=== PATIENT | male | born 1940 | race American Indian/Alaskan Native ===

== ENCOUNTER 2016-12-01 15:09 | Outpatient (CLI) | payer MEDICARE ==
--- NOTE | 2016-12-02 10:24 | XRay Report ---
KUB: 12/01/16 15:17:00 CLINICAL: Abdominal pain. Prostate cancer. FINDINGS: Normal bowel gas pattern. No distended bowel and no air-fluid levels. Moderate stool in the colon. No mass or suspicious calcifications. Granulomatous calcifications in the spleen and numerous pelvic phleboliths. Severe bilateral osteoarthritis of the hips and degenerative change in the spine. No suspicious bone lesions. IMPRESSION: Negative abdomen. Arthritis.
== END 2016-12-01 15:10 | disposition home or self-care (01) ==
LOC: XRAY 15:09
PROVIDERS: ATTEND Urology
DX: R10.9 Unspecified abdominal pain (principal); C61 Malignant neoplasm of prostate
CPT/HCPCS: 74000

== ENCOUNTER 2017-11-21 12:40 | Emergency (ER) | payer MEDICARE ==
--- NOTE | 2017-11-21 13:46 | Emergency Department Report ---
HPI - General Chief Complaint: Medical Clearance Time Seen by Provider: 11/21/17 13:29 - HPI HPI: Room 2 The patient is a 77-year-old male presenting with chief complaint of bleeding fistula. The patient states he went to dialysis today and completed dialysis however afterwards is left upper extremity fistula would not stop bleeding. A dressing with Christian wrap was applied by the dialysis staff at approximately 11:30 per patient and the patient was sent to the ED. Patient denies any other complaints Location: Left upper extremity Duration: [See above] Quality: Bleeding Severity: Moderate Modifying factors: [see above] Context: [see above] Mode of transportation: [not driving] ED Past Medical Hx - Past Medical History Hx Hypertension: Yes Hx CVA: Yes Hx Diabetes: Yes - Surgical History Past Surgical History?: No Additional Surgical History: Left upper extremity fistula - Family History Family history: no significant - Social History Smoking Status: Former Smoker (none 5 years) ED Review of Systems ROS: Stated complaint: BLEEDING Other details as noted in HPI Constitutional: no symptoms reported Hematological/Lymphatic: other (bleeding from left upper extremity fistula) Physical Exam - Physical Exam Physical Exam: GENERAL: The patient is well-developed well-nourished male lying on stretcher not appearing to be in acute distress. [] HEENT: Normocephalic. Atraumatic. Extraocular motions are intact. Patient has moist mucous membranes. NECK: Supple. Trachea midline CHEST/LUNGS: Clear to auscultation. There is no respiratory distress noted. HEART/CARDIOVASCULAR: Regular. There is no tachycardia. There is no gallop rub or murmur. ABDOMEN: Abdomen is soft, nontender. Patient has normal bowel sounds. There is no abdominal distention. SKIN: There is no rash. There is no diaphoresis. NEURO: The patient is awake, alert, and oriented. The patient is cooperative. The patient has normal speech and gait. MUSCULOSKELETAL: There is no evidence of acute injury. ED Course - Reevaluation(s) Reevaluation #1: 11/21/17 The patient's Christian wrap was unraveled and loosened significantly for patient comfort during my interview. Reevaluation #2: 11/21/17 15:14 Christian bandage removed. Patient hemostatic. Light gauze dressing placed ED Medical Decision Making - Lab Data Result diagrams: 11/21/17 13:41 11/21/17 13:41 Laboratory Tests 11/21/17 11/21/17 11/21/17 13:41 13:41 13:41 WBC 5.5 RBC 5.41 H Hgb 13.5 Hct 45.2 MCV 84 MCH 25 L MCHC 30 L RDW 19.7 H Plt Count 187 Lymph % (Auto) 28.4 [place] % (Auto) 11.6 H Eos % (Auto) 3.5 Baso % (Auto) 0.4 Lymph # 1.5 [place] # 0.6 Eos # 0.2 Baso # 0.0 Seg Neutrophils % 56.1 Seg Neutrophils # 3.1 PT 12.5 INR 0.89 APTT 34.6 Sodium 137 Potassium 4.3 Chloride 96.6 L Carbon Dioxide 25 Anion Gap 20 BUN 20 Creatinine 7.8 H Estimated GFR 8 BUN/Creatinine Ratio 3 Glucose 84 Calcium 9.1 - Differential Diagnosis coagulopathy, platelet dysfunction Critical care attestation.: If time is entered above; I have spent that time in minutes in the direct care of this critically ill patient, excluding procedure time. ED Disposition Clinical Impression: Hemorrhage of arteriovenous fistula Disposition: -01 TO HOME OR SELFCARE Is pt being admited?: No Does the pt Need Aspirin: No Condition: Stable Additional Instructions: Return to the emergency department immediately should you develop worsening symptoms, fever, inability to tolerate food or liquid or any other concerns. Referrals: PRIMARY CAREMD [Primary Care Provider] - 3-5 Days Time of Disposition: 15:15
[2017-11-21] MEDS ORDERED: DDAVP 25 MCG in NACL 0.9% 50 ML IV ONE (14:00)
[2017-11-21 14:13] LABS: Calcium 9.1 mg/dL (8.4-10.2)
[2017-11-21 14:23] LABS: INR 0.89 (0.87-1.13)
[2017-11-21 14:24] LABS: Partial Thromboplastin Time 34.6 Sec. (24.2-36.6)
[2017-11-21 14:39] LABS: Basophils % (Auto) 0.4 % (0.0-1.8); Eosinophils # (Auto) 0.2 K/mm3 (0.0-0.4); Eosinophils % (Auto) 3.5 % (0.0-4.3); Lymphocytes # (Auto) 1.5 K/mm3 (1.2-5.4); Lymphocytes % (Auto) 28.4 % (13.4-35.0); Mean Corpuscular HGB Conc 30 % (32-34); Mean Corpuscular Volume 84 fl (84-94); Monocytes # (Auto) 0.6 K/mm3 (0.0-0.8); Monocytes % (Auto) 11.6 % (0.0-7.3); Platelet Count 187 K/mm3 (140-440); Red Blood Count 5.41 M/mm3 (3.65-5.03); Red Cell Distribution Width 19.7 % (13.2-15.2)
[2017-11-21 14:40] LABS: Hematocrit 45.2 % (35.5-45.6); Hemoglobin 13.5 gm/dl (11.8-15.2); Mean Corpuscular Hemoglobin 25 pg (28-32)
[2017-11-21 15:49] VITALS: BP 138/73
== END 2017-11-21 15:47 | disposition home or self-care (01) ==
LOC: ED 12:40
DX: T82.838A Hemorrhage due to vascular prosthetic devices, implants and grafts, initial encounter (principal); I10 Essential (primary) hypertension; E11.9 Type 2 diabetes mellitus without complications; Z86.73 Personal history of transient ischemic attack (TIA), and cerebral infarction without residual deficits; Z87.891 Personal history of nicotine dependence; Z99.2 Dependence on renal dialysis
CPT/HCPCS: 36415; 80048; 85025; 85610; 85730; 96365; 99284; J2597

== ENCOUNTER 2018-09-02 09:50 | Inpatient (IN) | payer MEDICARE ==
--- NOTE | 2018-09-02 10:13 | Emergency Department Report ---
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 Patient brought to the emergency room via EMS from dialysis center after patient became unresponsive for a few minutes in the beginning of his dialysis session. Patient now is alert, oriented to place but not time. Patient stated that he was weak even before this started of the dialysis. Describes his weakness as generalized weakness. Emesis stated that on arrival patient blood pressure was 96/32 but in route patient blood pressure increased to 172/54. Patient denied any chest pain, shortness of breath, nausea or vomiting. Patient also denied any headache, focal weakness, numbness or tingling sensation. MD Complaint: altered mental status, confusion, decreased responsiveness -: Sudden, hour(s) Severity: moderate Consistency of Symptoms: unknown Associated Symptoms: denies other symptoms - Related Data Allergies Allergy/AdvReac Type Severity Reaction Status Date / Time No Known Allergies Allergy Unverified 12/01/16 15:09 ED Review of Systems ROS: Stated complaint: SYNCOPE Other details as noted in HPI Comment: All other systems reviewed and negative Constitutional: denies: chills, fever Respiratory: denies: cough, orthopnea, shortness of breath, SOB with exertion, SOB at rest Cardiovascular: denies: chest pain, palpitations Gastrointestinal: denies: abdominal pain, nausea, vomiting, diarrhea, constipation, hematemesis, melena, hematochezia Musculoskeletal: denies: back pain Neurological: weakness (generalized), confusion. denies: headache ED Past Medical Hx - Past Medical History Hx Hypertension: Yes Hx CVA: Yes Hx Diabetes: Yes - Surgical History Additional Surgical History: Left upper extremity fistula - Social History Smoking Status: Never Smoker ED Physical Exam - General Limitations: Physical Limitation General appearance: alert, in no apparent distress - Head Head exam: Present: atraumatic, normocephalic, normal inspection - Eye Eye exam: Present: normal appearance, PERRL - ENT ENT exam: Present: normal exam, normal orophraynx, mucous membranes moist - Neck Neck exam: Present: normal inspection, full ROM. Absent: tenderness, meningismus, lymphadenopathy, thyromegaly - Respiratory Respiratory exam: Present: normal lung sounds bilaterally - Cardiovascular Cardiovascular Exam: Present: regular rate, normal rhythm, normal heart sounds - GI/Abdominal GI/Abdominal exam: Present: soft, normal bowel sounds. Absent: distended, tenderness, guarding, rebound, rigid, mass, bruit, pulsatile mass, hernia - Extremities Exam Extremities exam: Present: normal inspection - Back Exam Back exam: Present: normal inspection, full ROM. Absent: tenderness, CVA tenderness (R), CVA tenderness (L), muscle spasm, paraspinal tenderness, vertebral tenderness - Neurological Exam Neurological exam: Present: alert, altered, other (chronic right upper and lower extremity weakness.) - Skin Skin exam: Present: warm, intact, normal color - Assessment Assessment Interval: Baseline - Level of Consciousness 1a. Level of Consciousness: alert/keenly responsive - LOC Questions 1b. LOC Questions: answers 1 question correctly - LOC Command 1c. LOC Commands: performs 1 task correctly - Best Gaze 2. Best Gaze: normal - Visual 3. Visual: no visual loss - Facial Palsy 4. Facial Palsy: normal symmetrical movement - Motor Arm 5a. Motor Arm Left: no drift 5b. Motor Arm Right: some gravity effort - Motor Leg 6a. Motor Leg Left: no drift 6b. Motor Leg Right: some gravity effort - Limb Ataxia 7. Limb Ataxia: absent - Sensory 8. Sensory: normal - Best Language 9. Best Language: no aphasia - Dysarthria 10. Dysarthria: normal - Extinction and Inattention 11. Extinction/Inattention: no abnormality - Scoring Total Score: 6 Stroke Severity: Moderate Stroke ED Course Vital Signs 09/02/18 09/02/18 09/02/18 10:03 10:17 10:31 Temperature 97.9 F Pulse Rate 65 64 60 Respiratory 21 18 18 Rate Blood Pressure 131/71 Blood Pressure 123/70 [Right] O2 Sat by Pulse 97 97 97 Oximetry 09/02/18 09/02/18 09/02/18 10:38 11:02 11:15 Temperature Pulse Rate 60 58 L Respiratory 21 18 15 Rate Blood Pressure Blood Pressure [Right] O2 Sat by Pulse 97 98 98 Oximetry 09/02/18 09/02/18 11:31 11:50 Temperature Pulse Rate 58 L 56 L Respiratory 18 16 Rate Blood Pressure Blood Pressure 146/78 [Right] O2 Sat by Pulse 99 99 Oximetry - Lab Data Result diagrams: 09/02/18 11:08 09/02/18 11:08 Lab Results 09/02/18 09/02/18 09/02/18 Range/Units 11:08 11:08 11:08 WBC 4.9 (4.5-11.0) K/mm3 RBC 3.93 (3.65-5.03) M/mm3 Hgb 10.5 L (11.8-15.2) gm/dl Hct 32.4 L (35.5-45.6) % MCV 82 L (84-94) fl MCH 27 L (28-32) pg MCHC 32 (32-34) % RDW 16.8 H (13.2-15.2) % Plt Count 202 (140-440) K/mm3 Lymph % (Auto) 11.2 L (13.4-35.0) % [place] % (Auto) 5.9 (0.0-7.3) % Eos % (Auto) 1.5 (0.0-4.3) % Baso % (Auto) 0.3 (0.0-1.8) % Lymph # 0.5 L (1.2-5.4) K/mm3 [place] # 0.3 (0.0-0.8) K/mm3 Eos # 0.1 (0.0-0.4) K/mm3 Baso # 0.0 (0.0-0.1) K/mm3 Seg Neutrophils % 81.1 H (40.0-70.0) % Seg Neutrophils # 4.0 (1.8-7.7) K/mm3 PT 13.8 (12.2-14.9) Sec. INR 1.00 (0.87-1.13) APTT 30.3 (24.2-36.6) Sec. Sodium (137-145) mmol/L Potassium (3.6-5.0) mmol/L Chloride (98-107) mmol/L Carbon Dioxide (22-30) mmol/L Anion Gap mmol/L BUN (9-20) mg/dL Creatinine (0.8-1.5) mg/dL Estimated GFR ml/min BUN/Creatinine Ratio % Glucose (75-100) mg/dL Lactic Acid (0.7-2.0) mmol/L Calcium (8.4-10.2) mg/dL Total Bilirubin (0.1-1.2) mg/dL Direct Bilirubin (0-0.2) mg/dL AST (5-40) units/L ALT (7-56) units/L Alkaline Phosphatase (35-129) units/L Ammonia (25-60) umol/L Troponin T 0.094 H (0.00-0.029) ng/mL Total Protein (6.3-8.2) g/dL Albumin (3.9-5) g/dL Albumin/Globulin Ratio % 09/02/18 09/02/18 09/02/18 Range/Units 11:08 11:08 11:08 WBC (4.5-11.0) K/mm3 RBC (3.65-5.03) M/mm3 Hgb (11.8-15.2) gm/dl Hct (35.5-45.6) % MCV (84-94) fl MCH (28-32) pg MCHC (32-34) % RDW (13.2-15.2) % Plt Count (140-440) K/mm3 Lymph % (Auto) (13.4-35.0) % [place] % (Auto) (0.0-7.3) % Eos % (Auto) (0.0-4.3) % Baso % (Auto) (0.0-1.8) % Lymph # (1.2-5.4) K/mm3 [place] # (0.0-0.8) K/mm3 Eos # (0.0-0.4) K/mm3 Baso # (0.0-0.1) K/mm3 Seg Neutrophils % (40.0-70.0) % Seg Neutrophils # (1.8-7.7) K/mm3 PT (12.2-14.9) Sec. INR (0.87-1.13) APTT (24.2-36.6) Sec. Sodium 140 (137-145) mmol/L Potassium 4.0 (3.6-5.0) mmol/L Chloride 97.6 L (98-107) mmol/L Carbon Dioxide 22 (22-30) mmol/L Anion Gap 24 mmol/L BUN 55 H (9-20) mg/dL Creatinine 15.4 H (0.8-1.5) mg/dL Estimated GFR 4 ml/min BUN/Creatinine Ratio 4 % Glucose 95 (75-100) mg/dL Lactic Acid 1.60 (0.7-2.0) mmol/L Calcium 8.3 L (8.4-10.2) mg/dL Total Bilirubin 0.60 (0.1-1.2) mg/dL Direct Bilirubin < 0.2 (0-0.2) mg/dL AST 21 (5-40) units/L ALT 13 (7-56) units/L Alkaline Phosphatase 81 (35-129) units/L Ammonia 26.0 (25-60) umol/L Troponin T 0.098 H (0.00-0.029) ng/mL Total Protein 6.8 (6.3-8.2) g/dL Albumin 3.3 L (3.9-5) g/dL Albumin/Globulin Ratio 0.9 % - EKG Data -: EKG Interpreted by Pa EKG shows normal: sinus rhythm Rate: normal Interpretation: no acute changes - Radiology Data Radiology results: report reviewed Referring Physician: NYASIA WINSLOW Patient Name: FATUMA MCFADDEN JR Date of : 1940 Sex: Male Report Date: 2018-09-02 Report Status: [place] [address] Cat Scan Report Signed Patient: FATUMA MCFADDEN JR MR#: [id number] : 1940 Acct:[id number] Age/Sex: 78 / M ADM Date: 09/02/18 Loc: ED Attending Dr: Ordering Physician: NYASIA WINSLOW Date of Service: 09/02/18 Procedure(s): CT head/brain wo con Accession Number(s): [id number] cc: NYASIA WINSLOW CT HEAD WITHOUT CONTRAST: HISTORY: Altered mental status. TECHNIQUE: Sequential CT images without contrast. FINDINGS: Images obtained show bilateral prominence of the sulci and ventricles. There are no abnormal intra- or extra-axial blood or fluid collections. There are no focal masses or evidence of mass effect. The lane white matter differentiation appears within normal limits. Regions of periventricular decreased attenuation are consistent with microangiopathic ischemic disease. The posterior fossa structures including the fourth ventricle, cerebellum, and brainstem appear normal. There is a large fluid level in the left maxillary is. The remaining sinuses are well-aerated. IMPRESSION: Evidence of atrophy and microangiopathic ischemic disease. No acute intracranial process noted. Fluid level in the left maxillary sinus. Correlate for acute sinusitis. 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 Patient brought to the emergency room via EMS from dialysis center after patient became unresponsive for a few minutes in the beginning of his dialysis session. Patient now is alert, oriented to place but not time. Patient stated that he was weak even before this started of the dialysis. Describes his weakness as generalized weakness. Emesis stated that on arrival patient blood pressure was 96/32 but in route patient blood pressure increased to 172/54. Patient denied any chest pain, shortness of breath, nausea or vomiting. Patient also denied any headache, focal weakness, numbness or tingling sensation. Patient remained stable in the ER. Patient is back to his baseline. CT brain is negative for acute finding. Labs reviewed and is unremarkable. I discussed the patient with Dr. Melendez, he agreed to admit the patient to medical service. Critical Care Time: Yes Critical care time in (mins) excluding proc time.: 30 Critical care attestation.: If time is entered above; I have spent that time in minutes in the direct care of this critically ill patient, excluding procedure time. ED Disposition Clinical Impression: Altered mental status Disposition: DC-09 OP ADMIT IP TO THIS HOSP Is pt being admited?: Yes Condition: Stable Referrals: CATHLEEN ROJAS MD [Primary Care Provider] - 3-5 Days
--- NOTE | 2018-09-02 10:59 | XRay Report ---
AP CHEST: HISTORY: Altered mental status There is poor inspiration. The lungs are grossly clear. Heart and mediastinal structures are unremarkable. The bony thorax is grossly intact. IMPRESSION: Negative expiratory AP chest.
[2018-09-02 11:42] LABS: Basophils % (Auto) 0.3 % (0.0-1.8); Eosinophils # (Auto) 0.1 K/mm3 (0.0-0.4); Eosinophils % (Auto) 1.5 % (0.0-4.3); Hematocrit 32.4 % (35.5-45.6); Hemoglobin 10.5 gm/dl (11.8-15.2); Lymphocytes # (Auto) 0.5 K/mm3 (1.2-5.4); Lymphocytes % (Auto) 11.2 % (13.4-35.0); Mean Corpuscular HGB Conc 32 % (32-34); Mean Corpuscular Volume 82 fl (84-94); Monocytes # (Auto) 0.3 K/mm3 (0.0-0.8); Monocytes % (Auto) 5.9 % (0.0-7.3); Platelet Count 202 K/mm3 (140-440); Red Blood Count 3.93 M/mm3 (3.65-5.03); Red Cell Distribution Width 16.8 % (13.2-15.2)
--- NOTE | 2018-09-02 11:49 | Cat Scan Report ---
CT HEAD WITHOUT CONTRAST: HISTORY: Altered mental status. TECHNIQUE: Sequential CT images without contrast. FINDINGS: Images obtained show bilateral prominence of the sulci and ventricles. There are no abnormal intra- or extra-axial blood or fluid collections. There are no focal masses or evidence of mass effect. The lane white matter differentiation appears within normal limits. Regions of periventricular decreased attenuation are consistent with microangiopathic ischemic disease. The posterior fossa structures including the fourth ventricle, cerebellum, and brainstem appear normal. There is a large fluid level in the left maxillary is. The remaining sinuses are well-aerated. IMPRESSION: Evidence of atrophy and microangiopathic ischemic disease. No acute intracranial process noted. Fluid level in the left maxillary sinus. Correlate for acute sinusitis.
[2018-09-02 11:53] LABS: Partial Thromboplastin Time 30.3 Sec. (24.2-36.6)
[2018-09-02 12:00] LABS: Alanine Aminotransferase 13 units/L (7-56); Albumin 3.3 g/dL (3.9-5); BUN/Creatinine Ratio 4; Blood Urea Nitrogen 55 mg/dL (9-20); Calcium 8.3 mg/dL (8.4-10.2); Hemolysis Index 20
[2018-09-02 12:03] LABS: Bilirubin,Direct < 0.2 mg/dL (0-0.2)
--- NOTE | 2018-09-02 13:57 | Consultation ---
History of Present Illness - Reason for Consult Consult date: 09/02/18 end stage renal disease - History of Present Illness The patient is 78 YO male who is well known to our service with medical history significant for ESRD on hemodialysis (MWF), Hypertension, DM type 2, multiple CVA with right sided residual weakness and cognitive dceline who was brought to the emergency room via EMS from hemodialysis center after patient became unresponsive for a few minutes in the beginning of his dialysis session. Patient is a poor historian. He c/o generalized weakness, cough productive of greenish phlegm. His initial blood pressure was 96/32 but en route patient blood pressure increased to 172/54. Patient denies any chest pain, shortness of breath, nausea, vomiting, abd pain, dizziness, fever or chills. Patient admitted for decreased responsiveness. He received about 2 hrs of hemodialysis today. Nephrology was consulted for further evaluation. Past History Past Medical History: anemia, diabetes, dialysis, ESRD, hyperlipidemia, stroke Medications and Allergies Allergies Allergy/AdvReac Type Severity Reaction Status Date / Time No Known Allergies Allergy Unverified 12/01/16 15:09 Review of Systems ROS unobtainable: due to mental status (please see HPI.) Exam - Vital Signs Vital signs: Vital Signs Temp Pulse Resp BP Pulse Ox 97.9 F 65 21 123/70 97 09/02/18 10:03 09/02/18 10:03 09/02/18 10:03 09/02/18 10:03 09/02/18 10:03 - General Appearance General appearance: well-developed, well-nourished, appears stated age, other (not in distress) EENT: ATNC, PERRL, hearing intact, vision intact Neck: Present: neck supple, trachea midline Respiratory: Clear to Ascultation Heart: regular, S1S2, no murmurs Gastrointestinal: Present: normoactive bowel sounds. Absent: tenderness, distended Integumentary: no rash, warm and dry Neurologic: confused, hemiplegic (right side) Musculoskeletal: Present: other (no edema, left arm AVF) Psychiatric: cooperative Results - Lab Results 09/02/18 11:08 09/02/18 11:08 Most recent lab results Calcium 8.3 mg/dL (8.4-10.2) L 09/02/18 11:08 Assessment and Plan 1. ESRD: Patient is on maintenance hemodialysis three times a week, MWF schedule. Received about 2 hrs of hemodialysis today. Plan to do HD in 2 days. 2. HTN: Monitor BP. Resume home BP meds. 3. AMS: Monitor. 4. Anemia: Epogen with HD. 5. CVA with residual R hemiplegia. 6. DM type 2.
[2018-09-02] MEDS ORDERED: ZOFRAN IV PRN (21:55)
[2018-09-02] MEDS ORDERED: TYLENOL PO PRN (21:55)
[2018-09-02] MEDS ORDERED: PERCOCET 5/325 PO PRN (21:55)
[2018-09-02] MEDS ORDERED: SODIUM CHLORIDE FLUSH SYRINGE 10 ML IV PRN (21:55)
[2018-09-02] MEDS ORDERED: DILAUDID IV PRN (21:55)
[2018-09-02] MEDS ORDERED: REGLAN IV PRN ×2 (21:55→22:12)
--- NOTE | 2018-09-02 22:01 | Event Note ---
Date: 09/02/18 See dictated history and physical in the reports Syncope ESRD
[2018-09-02] MEDS: PEPCID PO SCH (22:23)
[2018-09-02] MEDS: SODIUM CHLORIDE FLUSH SYRINGE 10 ML IV SCH (22:24)
[2018-09-03] MEDS ORDERED: HEPARIN 10,000 UNITS/10 ML IV ONE ×2 (01:31→01:35)
[2018-09-03 01:46] LABS: Chol/HDL Ratio 3.25 %
[2018-09-03 02:06] LABS: Hematocrit 31.4 % (35.5-45.6); Hemoglobin 10.1 gm/dl (11.8-15.2)
[2018-09-03 02:24] LABS: INR 1.09 (0.87-1.13)
[2018-09-03 02:25] LABS: Partial Thromboplastin Time 29.7 Sec. (24.2-36.6)
[2018-09-03] MEDS: HEPARIN/ 0.45% NACL-25,000 UNIT/500 ML 25,000 UNIT/500 ML BAG IV SCH (02:33)
[2018-09-03 06:27] LABS: Basophils % (Auto) 0.3 % (0.0-1.8); Eosinophils # (Auto) 0.1 K/mm3 (0.0-0.4); Eosinophils % (Auto) 2.3 % (0.0-4.3); Hemoglobin 9.8 gm/dl (11.8-15.2); Lymphocytes # (Auto) 1.1 K/mm3 (1.2-5.4); Lymphocytes % (Auto) 23.5 % (13.4-35.0); Mean Corpuscular HGB Conc 32 % (32-34); Mean Corpuscular Volume 84 fl (84-94); Monocytes # (Auto) 0.5 K/mm3 (0.0-0.8); Monocytes % (Auto) 10.7 % (0.0-7.3); Platelet Count 221 K/mm3 (140-440); Red Blood Count 3.71 M/mm3 (3.65-5.03); Red Cell Distribution Width 16.8 % (13.2-15.2)
[2018-09-03 06:53] LABS: Albumin 3.2 g/dL (3.9-5); Calcium 8.2 mg/dL (8.4-10.2)
--- NOTE | 2018-09-03 08:32 | History and Physical Report ---
CHIEF COMPLAINT: Passed out during dialysis for a few minutes. HISTORY OF PRESENT ILLNESS: A 78-year-old male with history of end-stage renal disease, on hemodialysis, hypertension, diabetes and multiple CVAs with right-sided weakness which is residual, brought in by EMS for apparently passing out during dialysis. Ten minutes into dialysis, the patient passed out for a few seconds. No chest pain. The patient felt he was very weak before dialysis was started. Also, complains of generalized weakness. On arrival, the patient's blood pressure was 96/32. Later on increased blood pressure to 172/54. The patient denies any chest pain, no shortness of breath. No nausea, vomiting. No headache. No recent travel. PAST MEDICAL HISTORY: Significant for hypertension, diabetes, cerebrovascular accident. PAST SURGICAL HISTORY: Left upper extremity fistula. SOCIAL HISTORY: Does not smoke. FAMILY HISTORY: Hypertension. REVIEW OF SYSTEMS: Significant for syncope for a minute and generalized weakness. Otherwise, review of systems negative. PHYSICAL EXAMINATION: GENERAL: Elderly male, cooperative during examination. VITAL SIGNS: Blood pressure is 147/66, temperature is 98.4, pulse is 84, respirations are 18, sats are 95%. HEENT: Unremarkable. Pupils equal and reactive. NECK: Supple, no lymphadenopathy, no thyromegaly. LUNGS: Clear to auscultation and percussion. Good air entry. CARDIOVASCULAR SYSTEM: S1, S2 heard. No gallop, no murmur, no rub. Apical impulse in left fifth intercostal space in midclavicular line. ABDOMEN: Soft and benign. No hepatosplenomegaly. No guarding, no rigidity. Hernial orifices are normal. EXTREMITIES: Good pedal pulses. No pedal edema. CENTRAL NERVOUS SYSTEM: Alert and oriented x 4, nonfocal exam. SKIN: Normal. LABORATORY DATA: White count is 4800, H and H is 10.5 and 32.4, platelet count is 202,000. Electrolytes are normal except for BUN and creatinine of 55 and 15.4. Troponin is 0.098 and 0.104 and 0.103. EKG shows sinus rhythm, heart rate of 60 per minute. DIAGNOSTIC DATA: CT of the head; evidence of atrophy and microangiopathic ischemic disease, no acute intracranial process noted. Fluid level in the left maxillary sinus, correlate for acute sinusitis. Chest x-ray negative. No acute findings. ASSESSMENT AND PLAN: 1. Syncope. Syncope workup. The patient had elevated troponins. Will get Lexiscan. Also, Cardiology consult requested. Also, carotid duplex scan. MRI/MRA if necessary. 2. Hypertension. Continue antihypertensives. 3. Cerebrovascular accident with right side residual weakness. Supportive care. 4. Diabetes, coverage for now. 5. Deep venous thrombosis prophylaxis, heparin 5000 q. 12. JOB# [id number] VSM/NTS
--- NOTE | 2018-09-03 08:43 | Progress Note ---
Assessment and Plan 1. ESRD: Patient is on maintenance hemodialysis three times a week, MWF schedule. Plan to do HD tomorrow. 2. HTN: On Losartan. Monitor BP. 3. Elevated Troponin: Followed by Cards. 4. Decreased responsiveness: Improved. 5. Anemia: Epogen with HD. 6. CVA with residual R hemiplegia. 7. DM type 2. Subjective Date of service: 09/03/18 Interval history: Patient was seen and examined at the bedside. Objective - Vital Signs Vital signs: Vital Signs - 12hr 09/02/18 09/03/18 23:09 08:17 Temperature 98.4 F Pulse Rate 65 Respiratory 16 20 Rate Blood Pressure 159/80 O2 Sat by Pulse 97 Oximetry - General Appearance General appearance: well-developed, well-nourished, appears stated age, other (not in distress) EENT: ATNC, PERRL, hearing intact, vision intact Neck: supple Respiratory: Present: Clear to Ascultation Cardiology: regular, S1S2, no murmurs Gastrointestinal: normoactive bowel sounds, no tenderness, no distended Integumentary: no rash, warm and dry Neurologic: no asterixis, confused, hemiplegic (right side) Musculoskeletal: other (no edema, right foot deformity, left arm AVF) - Lab 09/03/18 06:07 09/03/18 06:07 Most recent lab results Calcium 8.2 mg/dL (8.4-10.2) L 09/03/18 06:07 Medications & Allergies - Medications Allergies/Adverse Reactions: Allergies No Known Allergies Allergy (Unverified 12/01/16 15:09) Home Medications: Home Medications Medication Instructions Recorded Confirmed Last Taken Type Unobtainable 09/02/18 09/02/18 Unknown History Active Medications: Generic Name Dose Route Start Last Admin Trade Name Freq PRN Reason Stop Dose Admin Acetaminophen 650 mg 09/02/18 21:55 Tylenol PO Q4H PRN Pain MILD(1-3)/Fever >100.5/QUINTERO Atorvastatin Calcium 20 mg 09/03/18 22:00 Lipitor PO QHS BRIAN Famotidine 10 mg 09/02/18 22:00 09/02/18 22:23 Pepcid PO 10 mg BID BRIAN Administration Hydromorphone HCl 0.25 mg 09/02/18 21:55 Dilaudid IV Q3H PRN Pain, Moderate (4-6) Heparin Sodium/Sodium Chloride 25,000 unit in 500 mls @ 20 mls/hr 09/03/18 02:00 09/03/18 02:33 Heparin/ 0.45% Nacl-25,000 Unit/500 Ml IV 1,000 units/hr TITRATE BRIAN 20 mls/hr Administration Protocol 1,000 UNITS/HR Losartan Potassium 50 mg 09/03/18 10:00 Cozaar PO QDAY BRIAN Metoclopramide HCl 2.5 mg 09/02/18 22:12 Reglan IV Q6H PRN Nausea And Vomiting Ondansetron HCl 4 mg 09/02/18 21:55 Zofran IV Q8H PRN Nausea And Vomiting Oxycodone/Acetaminophen 1 tab 09/02/18 21:55 Percocet 5/325 PO Q6H PRN Pain, Moderate (4-6) Sodium Chloride 10 ml 09/02/18 22:00 09/02/18 22:24 Sodium Chloride Flush Syringe 10 Ml IV 10 ml BID BRIAN Administration Sodium Chloride 10 ml 09/02/18 21:55 Sodium Chloride Flush Syringe 10 Ml IV PRN PRN LINE FLUSH
[2018-09-03] MEDS ORDERED: COZAAR PO SCH (10:00)
--- NOTE | 2018-09-03 10:32 | Consultation ---
History of Present Illness Consult date: 09/03/18 Consult reason: elevated troponin History of present illness: Patient is a 78 year old man with end stage renal disease and is on hemodialysis. He has Hypertension, DM type 2, prior CVA with right sided residual. Patient was brought to the emergency room from hemodialysis center after patient became unresponsive during his dialysis session. There were no reports of chest pain, unusual shortness of breath or palpitations. No acute intracranial process by head CT scan. Chest x-ray is negative. An EKG shows sinus rhythm with prolonged QTc. Past History Past Medical History: anemia, diabetes, dialysis, ESRD, hypertension, hyperlipidemia, stroke Medications and Allergies Allergies Allergy/AdvReac Type Severity Reaction Status Date / Time No Known Allergies Allergy Unverified 12/01/16 15:09 Home Medications Medication Instructions Recorded Confirmed Last Taken Type Unobtainable 09/02/18 09/02/18 Unknown History Active Meds: Active Medications Acetaminophen (Tylenol) 650 mg PO Q4H PRN PRN Reason: Pain MILD(1-3)/Fever >100.5/QUINTERO Atorvastatin Calcium (Lipitor) 20 mg PO QHS [facility] Famotidine (Pepcid) 10 mg PO BID [facility] Last Admin: 09/02/18 22:23 Dose: 10 mg Documented by: Hydromorphone HCl (Dilaudid) 0.25 mg IV Q3H PRN PRN Reason: Pain, Moderate (4-6) Heparin Sodium/Sodium Chloride (Heparin/ 0.45% Nacl-25,000 Unit/500 Ml) 25,000 unit in 500 mls @ 20 mls/hr IV TITRATE [facility]; Protocol Last Admin: 09/03/18 02:33 Dose: 1,000 units/hr, 20 mls/hr Documented by: Losartan Potassium (Cozaar) 100 mg PO QDAY [facility] Metoclopramide HCl (Reglan) 2.5 mg IV Q6H PRN PRN Reason: Nausea And Vomiting Ondansetron HCl (Zofran) 4 mg IV Q8H PRN PRN Reason: Nausea And Vomiting Oxycodone/Acetaminophen (Percocet 5/325) 1 tab PO Q6H PRN PRN Reason: Pain, Moderate (4-6) Sodium Chloride (Sodium Chloride Flush Syringe 10 Ml) 10 ml IV BID [facility] Last Admin: 09/02/18 22:24 Dose: 10 ml Documented by: Sodium Chloride (Sodium Chloride Flush Syringe 10 Ml) 10 ml IV PRN PRN PRN Reason: LINE FLUSH Physical Examination Vital Signs Temp Pulse Resp BP Pulse Ox 97.9 F 65 21 123/70 97 09/02/18 10:03 09/02/18 10:03 09/02/18 10:03 09/02/18 10:03 09/02/18 10:03 General appearance: no acute distress HEENT: Positive: PERRL Neck: Positive: trachea midline Cardiac: Positive: Reg Rate and Rhythm Lungs: Positive: Decreased Breath Sounds Neuro: Positive: Other (right sided residual) Results 09/03/18 06:07 09/03/18 06:07 Cardiac Enzymes 09/02/18 09/03/18 Range/Units 11:08 06:07 AST 21 18 (5-40) units/L Coagulation 09/02/18 09/03/18 Range/Units 11:08 01:54 PT 13.8 14.8 (12.2-14.9) Sec. INR 1.00 1.09 (0.87-1.13) APTT 30.3 29.7 (24.2-36.6) Sec. Lipids 09/02/18 Range/Units 20:45 Triglycerides 114 (2-149) mg/dL Cholesterol 104 (50-199) mg/dL HDL Cholesterol 32 L (40-59) mg/dL Cholesterol/HDL Ratio 3.25 % CBC 09/02/18 09/03/18 09/03/18 Range/Units 11:08 01:54 06:07 WBC 4.9 4.8 (4.5-11.0) K/mm3 RBC 3.93 3.71 (3.65-5.03) M/mm3 Hgb 10.5 L 10.1 L 9.8 L (11.8-15.2) gm/dl Hct 32.4 L 31.4 L 31.0 L (35.5-45.6) % Plt Count 202 211 221 (140-440) K/mm3 Lymph # 0.5 L 1.1 L (1.2-5.4) K/mm3 Haakon # 0.3 0.5 (0.0-0.8) K/mm3 Eos # 0.1 0.1 (0.0-0.4) K/mm3 Baso # 0.0 0.0 (0.0-0.1) K/mm3 Comprehensive Metabolic Panel 09/02/18 09/03/18 Range/Units 11:08 06:07 Sodium 140 143 (137-145) mmol/L Potassium 4.0 4.2 (3.6-5.0) mmol/L Chloride 97.6 L 100.3 (98-107) mmol/L Carbon Dioxide 22 22 (22-30) mmol/L BUN 55 H 63 H (9-20) mg/dL Creatinine 15.4 H 18.5 H (0.8-1.5) mg/dL Glucose 95 82 (75-100) mg/dL Calcium 8.3 L 8.2 L (8.4-10.2) mg/dL Direct Bilirubin < 0.2 (0-0.2) mg/dL AST 21 18 (5-40) units/L ALT 13 13 (7-56) units/L Alkaline Phosphatase 81 75 (35-129) units/L Total Protein 6.8 6.4 (6.3-8.2) g/dL Albumin 3.3 L 3.2 L (3.9-5) g/dL Assessment and Plan Altered mental status during dialysis ESRD on HD Hypertension DM Prior CVA with right side residual Nonspecific troponin likely secondary to renal disease.
[2018-09-03] MEDS: PEPCID PO SCH ×2 (10:43→23:04)
[2018-09-03] MEDS: SODIUM CHLORIDE FLUSH SYRINGE 10 ML IV SCH ×2 (10:45→23:05)
[2018-09-03] MEDS: COZAAR PO SCH (13:19)
--- NOTE | 2018-09-03 14:47 | Progress Note ---
Assessment and Plan - Patient Problems (1) NSTEMI (non-ST elevated myocardial infarction) Status: Acute Plan to address problem: Elevated Troponins On Heparin Cardiology consult requested (2) Encephalopathy acute Status: Acute Plan to address problem: Secondary to Uremia Should correct with HD (3) Syncope and collapse Status: Acute Plan to address problem: Syncope workup negative till now Lexiscan -No reversible ischemia CDS No Hemodynamically significant stenosis Echo EF 50 to 55 percent LVH (4) ESRD (end stage renal disease) Status: Chronic Plan to address problem: CONT HD (5) HTN (hypertension) Status: Chronic Qualifiers: Hypertension type: essential hypertension Qualified Code(s): I10 - Essential (primary) hypertension Plan to address problem: COnt Antihypertensives (6) T2DM (type 2 diabetes mellitus) Status: Chronic Qualifiers: Diabetes mellitus mcc insulin use: without ferry terminal supervisor use Chronic kidney disease stage: on chronic dialysis Plan to address problem: Coverage for now (7) CVA, old, ataxia Status: Chronic Plan to address problem: With Rt Hemiplegia Supportive care (8) DVT prophylaxis Status: Acute Plan to address problem: On Heparin drip Subjective Date of service: 09/03/18 Principal diagnosis: Syncope,elevated Tropoin Interval history: Doing better No chest pain Objective - Constitutional Vitals: Vital Signs - 12hr 09/03/18 09/03/18 09/03/18 04:25 08:17 09:02 Temperature 98.1 F 98.0 F Pulse Rate 67 Respiratory 16 20 18 Rate Blood Pressure 160/77 171/75 O2 Sat by Pulse 98 Oximetry 09/03/18 09/03/18 10:00 13:19 Temperature Pulse Rate 79 68 Respiratory Rate Blood Pressure 167/83 O2 Sat by Pulse Oximetry General appearance: Present: no acute distress, well-nourished - EENT Eyes: PERRL, EOM intact ENT: hearing intact, clear oral mucosa Ears: bilateral: normal - Neck Neck: supple, normal ROM - Respiratory Respiratory effort: normal Respiratory: bilateral: CTA - Breasts Breasts: normal - Cardiovascular Heart rate: 78 Rhythm: regular Heart Sounds: Present: S1 & S2. Absent: gallop, rub Extremities: no ischemia, pulses intact, No edema, normal color, Full ROM - Gastrointestinal General gastrointestinal: Present: soft, non-tender, non-distended, normal bowel sounds - Genitourinary Male genitourinary: normal - Integumentary Integumentary: clear, warm, dry - Musculoskeletal Musculoskeletal: right sided weakness (Rt Hemiplegia) - Neurologic Neurologic: focal deficits - Psychiatric Psychiatric: memory intact, appropriate mood/affect, intact judgment & insight - Labs CBC & Chem 7: 09/05/18 05:10 09/03/18 06:07 Labs: Abnormal lab results 09/02/18 09/03/18 09/03/18 Range/Units 20:45 01:54 02:10 Hgb 10.1 L (11.8-15.2) gm/dl Hct 31.4 L (35.5-45.6) % MCH (28-32) pg RDW (13.2-15.2) % Door % (Auto) (0.0-7.3) % Lymph # (1.2-5.4) K/mm3 BUN (9-20) mg/dL Creatinine (0.8-1.5) mg/dL Calcium (8.4-10.2) mg/dL Troponin T 0.104 H* 0.103 H* (0.00-0.029) ng/mL Albumin (3.9-5) g/dL LDL Cholesterol Direct 49 L (50-130) mg/dL HDL Cholesterol 32 L (40-59) mg/dL 09/03/18 09/03/18 09/03/18 Range/Units 06:07 06:07 08:35 Hgb 9.8 L (11.8-15.2) gm/dl Hct 31.0 L (35.5-45.6) % MCH 27 L (28-32) pg RDW 16.8 H (13.2-15.2) % Door % (Auto) 10.7 H (0.0-7.3) % Lymph # 1.1 L (1.2-5.4) K/mm3 BUN 63 H (9-20) mg/dL Creatinine 18.5 H (0.8-1.5) mg/dL Calcium 8.2 L (8.4-10.2) mg/dL Troponin T 0.103 H* (0.00-0.029) ng/mL Albumin 3.2 L (3.9-5) g/dL LDL Cholesterol Direct (50-130) mg/dL HDL Cholesterol (40-59) mg/dL
[2018-09-04] MEDS ORDERED: PROCRIT SUB-Q PRN (08:04)
--- NOTE | 2018-09-04 08:04 | Progress Note ---
Assessment and Plan 1. ESRD: Patient is on maintenance hemodialysis three times a week, MWF schedule. Plan to do HD today. 2. HTN: On Losartan. Monitor BP. 3. Elevated Troponin: Followed by Cards. 4. Decreased responsiveness: Improved. 5. Anemia: Epogen with HD. 6. CVA with residual R hemiplegia. 7. DM type 2. Subjective Date of service: 09/04/18 Interval history: Patient was seen and examined at the bedside. Objective - Vital Signs Vital signs: Vital Signs - 12hr 09/03/18 09/04/18 09/04/18 23:01 03:00 04:17 Temperature 98.3 F 98.2 F Pulse Rate 66 62 68 Respiratory 19 16 Rate Blood Pressure 171/74 160/57 O2 Sat by Pulse 98 100 Oximetry - General Appearance General appearance: well-developed, well-nourished, appears stated age, other (not in distress) EENT: ATNC, PERRL, mucous membranes moist, hearing intact, vision intact Neck: supple Respiratory: Present: Clear to Ascultation Cardiology: regular, S1S2, no murmurs Gastrointestinal: normoactive bowel sounds, no tenderness, no distended Integumentary: no rash, warm and dry Neurologic: no asterixis, confused, disoriented, hemiplegic (right side) Musculoskeletal: other (no edema, left arm AVF) - Lab 09/03/18 06:07 09/03/18 06:07 Most recent lab results Calcium 8.2 mg/dL (8.4-10.2) L 09/03/18 06:07 Medications & Allergies - Medications Allergies/Adverse Reactions: Allergies No Known Allergies Allergy (Unverified 12/01/16 15:09) Home Medications: Home Medications Medication Instructions Recorded Confirmed Last Taken Type Unobtainable 09/02/18 09/02/18 Unknown History Active Medications: Generic Name Dose Route Start Last Admin Trade Name Freq PRN Reason Stop Dose Admin Acetaminophen 650 mg 09/02/18 21:55 Tylenol PO Q4H PRN Pain MILD(1-3)/Fever >100.5/QUINTERO Atorvastatin Calcium 20 mg 09/03/18 22:00 09/03/18 23:04 Lipitor PO 20 mg QHS BRIAN Administration Famotidine 10 mg 09/02/18 22:00 09/03/18 23:04 Pepcid PO 10 mg BID BRIAN Administration Hydromorphone HCl 0.25 mg 09/02/18 21:55 Dilaudid IV Q3H PRN Pain, Moderate (4-6) Heparin Sodium/Sodium Chloride 25,000 unit in 500 mls @ 20 mls/hr 09/03/18 02:00 09/04/18 04:06 Heparin/ 0.45% Nacl-25,000 Unit/500 Ml IV 550 units/hr TITRATE BRIAN 11 mls/hr Titration Protocol 1,000 UNITS/HR Losartan Potassium 100 mg 09/03/18 12:00 09/03/18 13:19 Cozaar PO 100 mg QDAY BRIAN Administration Metoclopramide HCl 2.5 mg 09/02/18 22:12 Reglan IV Q6H PRN Nausea And Vomiting Ondansetron HCl 4 mg 09/02/18 21:55 Zofran IV Q8H PRN Nausea And Vomiting Oxycodone/Acetaminophen 1 tab 09/02/18 21:55 Percocet 5/325 PO Q6H PRN Pain, Moderate (4-6) Sodium Chloride 10 ml 09/02/18 22:00 09/03/18 23:05 Sodium Chloride Flush Syringe 10 Ml IV 10 ml BID BRIAN Administration Sodium Chloride 10 ml 09/02/18 21:55 Sodium Chloride Flush Syringe 10 Ml IV PRN PRN LINE FLUSH
[2018-09-04] MEDS: PEPCID PO SCH ×2 (09:29→21:40)
[2018-09-04] MEDS ORDERED: NACL 0.9% 100 ML IV PRN ×2 (09:30→11:03)
[2018-09-04] MEDS: HEPARIN/ 0.45% NACL-25,000 UNIT/500 ML 25,000 UNIT/500 ML BAG IV SCH (09:33)
[2018-09-04] MEDS: SODIUM CHLORIDE FLUSH SYRINGE 10 ML IV SCH ×2 (09:37→21:40)
[2018-09-04] MEDS: COZAAR PO SCH ×2 (09:42→19:07)
--- NOTE | 2018-09-04 11:21 | Progress Note ---
Assessment and Plan Altered mental status during dialysis -resolved head CT scan- no acute intracranial process. ESRD on HD Hypertension DM Prior CVA with right side residual Nonspecific troponin likely secondary to renal disease. Recommendations: Echocardiogram for left ventricular function assessment. Pre-discharge thallium stress test for cardiac ischemia assessment. Subjective Date of service: 09/04/18 Interval history: Patient is resting in bed comfortably. He denies chest pain and shortness of breath. Objective Vital Signs Temp Pulse Resp BP BP Pulse Ox 09/04/18 08:18 98.1 F 75 16 207/93 96 09/04/18 04:17 98.2 F 68 16 160/57 100 09/04/18 03:00 62 09/03/18 23:01 98.3 F 66 19 171/74 98 09/03/18 19:52 98.8 F 67 16 173/78 99 09/03/18 19:30 67 09/03/18 18:51 98.4 F 18 170/80 09/03/18 18:45 98.2 F 60 18 119/79 99 09/03/18 13:57 71 18 100 09/03/18 13:19 68 167/83 - Physical Examination General: No Apparent Distress HEENT: Positive: PERRL Neck: Positive: trachea midline Cardiac: Positive: Reg Rate and Rhythm Lungs: Positive: Decreased Breath Sounds Neuro: Positive: Other (right sided residual)
--- NOTE | 2018-09-04 11:28 | Vascular Lab Report ---
PROCEDURE: VL CAROTID DUPLEX BILAT TECHNIQUE: Duplex Doppler ultrasound of the common, internal and external carotid arteries and the v ertebral arteries was performed bilaterally. [place] scale imaging, velocity spectral waveform analysis, and color flow Doppler were employed. HISTORY: syncope COMPARISONS: None . Note: Measurement of carotid stenosis is based on flow velocity values that correlate with the [place] Symptomatic Carotid Endarterectomy Trial (NASCET) based stenosis criteria using the internal carotid artery diameter as the denominator for stenosis calculation. FINDINGS: RIGHT carotid artery: Velocities: ICA PSV: 52 cm/sec ICA End diastolic: 12 cm/sec CCA PSV: 51 cm/sec IC/CC ratio: 1.01 Plaque/color flow: Mild heterogeneous plaque without significant spectral broadening or abnormal col or flow . RIGHT vertebral artery: Antegrade systolic and diastolic flow LEFT carotid artery: Velocities: ICA PSV: 52 cm/sec ICA End diastolic: 10 cm/sec CCA PSV: 61 cm/sec IC/CC ratio: 0.85 Plaque/color flow: Mild heterogeneous plaque without significant spectral broadening or abnormal col or flow . LEFT vertebral artery: Antegrade systolic and diastolic flow IMPRESSION: 1. RIGHT carotid: No hemodynamically significant (less than 50 percent) internal carotid artery everardo nosis. 2. LEFT carotid: No hemodynamically significant (less than 50 percent) internal carotid artery sten osis. 3. Vertebral arteries: Bilaterally antegrade. This document is electronically signed by Aravind Chang MD., September 04 2018 11:25:50 AM ET
[2018-09-04] MEDS ORDERED: NACL 0.9 (PRIMING MACHINE ONLY DIALYSIS) MC ONE (11:55)
[2018-09-04 12:12] LABS: Hepatitis C Virus Antibody Non-Reactive (NonReactive)
[2018-09-04 22:00] LABS: Hepatitis B Surface Antigen Non-Reactive (Negative)
[2018-09-05 05:24] LABS: Hematocrit 33.4 % (35.5-45.6); Hemoglobin 10.7 gm/dl (11.8-15.2)
[2018-09-05] MEDS ORDERED: LEXISCAN IV ONE ×2 (09:07)
--- NOTE | 2018-09-05 09:09 | Progress Note ---
Assessment and Plan 1. ESRD: Patient is on maintenance hemodialysis three times a week, MWF schedule. Plan to do HD tomorrow. 2. HTN: On Losartan. Monitor BP. 3. Elevated Troponin: Followed by Cards. Stress test. 4. Decreased responsiveness: Improved. 5. Anemia: Epogen with HD. 6. CVA with residual R hemiplegia. 7. DM type 2. Subjective Date of service: 09/05/18 Interval history: Patient was seen and examined at the bedside. Objective - Vital Signs Vital signs: Vital Signs - 12hr 09/04/18 09/04/18 09/05/18 22:04 23:25 03:47 Temperature 98.0 F 98.0 F Pulse Rate 69 75 76 Respiratory 18 20 Rate Blood Pressure 178/81 183/91 189/97 O2 Sat by Pulse 98 96 Oximetry 09/05/18 09/05/18 06:24 06:27 Temperature Pulse Rate 71 76 Respiratory Rate Blood Pressure 179/101 162/96 O2 Sat by Pulse Oximetry - General Appearance General appearance: well-developed, well-nourished, appears stated age, other (not in distress) EENT: ATNC, PERRL, hearing intact Neck: supple Respiratory: Present: Clear to Ascultation Cardiology: regular, S1S2, no murmurs Gastrointestinal: normoactive bowel sounds, no tenderness, no distended Integumentary: no rash, warm and dry Neurologic: no asterixis, confused, disoriented, hemiplegic (right side) Musculoskeletal: other (no edema, left arm AVF) - Lab 09/05/18 05:10 09/03/18 06:07 Most recent lab results Calcium 8.2 mg/dL (8.4-10.2) L 09/03/18 06:07 Medications & Allergies - Medications Allergies/Adverse Reactions: Allergies No Known Allergies Allergy (Unverified 12/01/16 15:09) Home Medications: Home Medications Medication Instructions Recorded Confirmed Last Taken Type AtorvaSTATin [Lipitor] 20 mg PO QHS #30 tablet 09/05/18 Unknown Rx Famotidine [Pepcid] 10 mg PO BID #60 tablet 09/05/18 Unknown Rx Losartan [Cozaar] 100 mg PO QDAY #30 tablet 09/05/18 Unknown Rx oxyCODONE /ACETAMINOPHEN [Percocet 1 tab PO Q6H PRN #30 tablet 09/05/18 Unknown Rx 5/325 mg] Active Medications: Generic Name Dose Route Start Last Admin Trade Name Freq PRN Reason Stop Dose Admin Acetaminophen 650 mg 09/02/18 21:55 Tylenol PO Q4H PRN Pain MILD(1-3)/Fever >100.5/QUINTERO Atorvastatin Calcium 20 mg 09/03/18 22:00 09/04/18 21:40 Lipitor PO 20 mg QHS BRIAN Administration Epoetin Juan C 10,000 unit 09/04/18 08:04 09/04/18 12:03 Procrit SUB-Q 10,000 unit JASSON PRN Administration hemodialysis Famotidine 10 mg 09/02/18 22:00 09/04/18 21:40 Pepcid PO 10 mg BID BRIAN Administration Hydromorphone HCl 0.25 mg 09/02/18 21:55 Dilaudid IV Q3H PRN Pain, Moderate (4-6) Heparin Sodium/Sodium Chloride 25,000 unit in 500 mls @ 20 mls/hr 09/03/18 02:00 09/05/18 06:16 Heparin/ 0.45% Nacl-25,000 Unit/500 Ml IV 800 units/hr TITRATE BRIAN 16 mls/hr Titration Protocol 1,000 UNITS/HR Sodium Chloride 100 mls @ 999 mls/hr 09/04/18 09:30 Nacl 0.9% IV JASSON PRN Hypotension Sodium Chloride 100 mls @ 999 mls/hr 09/04/18 11:03 Nacl 0.9% IV JASSON PRN Hypotension Losartan Potassium 100 mg 09/03/18 12:00 09/04/18 19:07 Cozaar PO 100 mg QDAY BRIAN Administration Metoclopramide HCl 2.5 mg 09/02/18 22:12 Reglan IV Q6H PRN Nausea And Vomiting Ondansetron HCl 4 mg 09/02/18 21:55 Zofran IV Q8H PRN Nausea And Vomiting Oxycodone/Acetaminophen 1 tab 09/02/18 21:55 Percocet 5/325 PO Q6H PRN Pain, Moderate (4-6) Regadenoson 0.4 mg 09/05/18 09:07 Lexiscan IV 09/05/18 09:08 ONCE ONE Sodium Chloride 10 ml 09/02/18 22:00 09/04/18 21:40 Sodium Chloride Flush Syringe 10 Ml IV Not Given BID BRIAN Sodium Chloride 10 ml 09/02/18 21:55 Sodium Chloride Flush Syringe 10 Ml IV PRN PRN LINE FLUSH
--- NOTE | 2018-09-05 13:36 | Event Note ---
Date: 09/05/18 Patient underwent a cardiac myocardial perfusion study, the results pending.
[2018-09-05] MEDS: COZAAR PO SCH (15:27)
[2018-09-05] MEDS: PEPCID PO SCH (15:28)
[2018-09-05] MEDS: SODIUM CHLORIDE FLUSH SYRINGE 10 ML IV SCH (15:29)
[2018-09-05 16:11] VITALS: BP 183/89
--- NOTE | 2018-09-05 18:24 | Progress Note ---
Assessment and Plan (1) NSTEMI (non-ST elevated myocardial infarction) Status: Acute Plan to address problem: Elevated Troponins On Heparin NSTEMI -unlikely Stop Heparin drip (2) Encephalopathy acute Status: Acute Plan to address problem: Secondary to Uremia Improved (3) Syncope and collapse Status: Acute Plan to address problem: Syncope workup negative till now Lexiscan -No reversible ischemia CDS No Hemodynamically significant stenosis Echo EF 50 to 55 percent LVH (4) ESRD (end stage renal disease) Status: Chronic Plan to address problem: CONT HD (5) HTN (hypertension) Status: Chronic Qualifiers: Hypertension type: essential hypertension Qualified Code(s): I10 - Essential (primary) hypertension Plan to address problem: COnt Antihypertensives (6) T2DM (type 2 diabetes mellitus) Status: Chronic Qualifiers: Diabetes mellitus snf insulin use: without sleep lab technologist use Chronic kidney disease stage: on chronic dialysis Plan to address problem: Coverage for now (7) CVA, old, ataxia Status: Chronic Plan to address problem: With Rt Hemiplegia Supportive care (8) DVT prophylaxis Status: Acute Plan to address problem: On Heparin drip Subjective Date of service: 09/05/18 Principal diagnosis: NSTEMI/Encepaloathy Interval history: Doing better No chest pain Objective - Constitutional Vitals: Vital Signs - 12hr 09/05/18 09/05/18 09/05/18 06:27 09:52 10:00 Pulse Rate 76 67 Blood Pressure 162/96 167/81 O2 Sat by Pulse Oximetry 09/05/18 09/05/18 09/05/18 10:06 10:45 10:46 Pulse Rate Blood Pressure 167/78 159/77 166/77 O2 Sat by Pulse Oximetry 09/05/18 09/05/18 09/05/18 10:48 10:49 10:51 Pulse Rate Blood Pressure 153/85 171/86 167/87 O2 Sat by Pulse Oximetry 09/05/18 09/05/18 09/05/18 13:00 15:27 16:09 Pulse Rate 73 72 69 Blood Pressure 175/85 167/57 183/89 O2 Sat by Pulse 98 100 Oximetry General appearance: Present: no acute distress, well-nourished - EENT Eyes: PERRL, EOM intact ENT: hearing intact, clear oral mucosa Ears: bilateral: normal - Neck Neck: supple, normal ROM - Respiratory Respiratory effort: normal Respiratory: bilateral: CTA - Breasts Breasts: normal - Cardiovascular Heart rate: 78 Rhythm: regular Heart Sounds: Present: S1 & S2. Absent: gallop, rub Extremities: pulses intact, No edema, normal color, Full ROM - Gastrointestinal General gastrointestinal: Present: soft, non-tender, non-distended, normal bowel sounds - Genitourinary Male genitourinary: normal - Integumentary Integumentary: clear, warm, dry - Musculoskeletal Musculoskeletal: right sided weakness - Neurologic Neurologic: focal deficits - Psychiatric Psychiatric: memory intact, appropriate mood/affect, intact judgment & insight - Allied health notes Allied health notes reviewed: nursing, case management - Labs CBC & Chem 7: 09/05/18 05:10 09/03/18 06:07 Labs: Abnormal lab results 09/04/18 09/05/18 09/05/18 Range/Units 20:58 05:10 05:13 Hgb 10.7 L (11.8-15.2) gm/dl Hct 33.4 L (35.5-45.6) % Heparin Anti-Xa Level 0.11 L 0.16 L (0.3-0.7) U.I./ml
--- NOTE | 2018-09-05 18:56 | Discharge Summary ---
Providers - Providers Date of Admission: 09/02/18 12:46 Date of discharge: 09/05/18 Attending physician: JOSH BAINS 09/03/18 00:45 Consult to Physician [CONS] Routine Comment: Consulting Provider: ABENA AQUINO Physician Instructions: Reason For Exam: elevated cardiac enzyme Primary care physician: CATHLEEN ROJAS Hospitalization Condition: Stable Pertinent studies: Progress note for 09/04/18 Hospital course: (1) NSTEMI (non-ST elevated myocardial infarction) Status: Acute Plan to address problem: Elevated Troponins Heparin stopped No NSTEMI (2) Encephalopathy acute Status: Acute Plan to address problem: Secondary to Uremia Improved (3) Syncope and collapse Status: Acute Plan to address problem: Syncope workup negative till now Lexiscan -No reversible ischemia CDS No Hemodynamically significant stenosis Echo EF 50 to 55 percent LVH (4) ESRD (end stage renal disease) Status: Chronic Plan to address problem: CONT HD (5) HTN (hypertension) Status: Chronic Qualifiers: Hypertension type: essential hypertension Qualified Code(s): I10 - Essential (primary) hypertension Plan to address problem: COnt Antihypertensives (6) T2DM (type 2 diabetes mellitus) Status: Chronic Qualifiers: Diabetes mellitus middle or intermediate school principal insulin use: without senior living use Chronic kidney disease stage: on chronic dialysis Plan to address problem: Coverage for now (7) CVA, old, ataxia Status: Chronic Plan to address problem: With Rt Hemiplegia Supportive care (8) DVT prophylaxis Status: Acute Plan to address problem: On Heparin drip Disposition: DC-01 TO HOME OR SELFCARE Core Measure Documentation - Palliative Care Palliative Care/ Comfort Measures: Not Applicable - Core Measures Any of the following diagnoses?: none Exam - Constitutional Vitals: Temp Pulse Resp BP Pulse Ox 98.0 F 69 20 183/89 100 09/05/18 03:47 09/05/18 16:09 09/05/18 03:47 09/05/18 16:09 09/05/18 16:09 Plan Follow up with: CATHLEEN ROJAS MD [Primary Care Provider] - 3-5 Days Prescriptions: Losartan [Cozaar] 100 mg PO QDAY #30 tablet AtorvaSTATin [Lipitor] 20 mg PO QHS #30 tablet Famotidine [Pepcid] 10 mg PO BID #60 tablet oxyCODONE /ACETAMINOPHEN [Percocet 5/325 mg] 1 tab PO Q6H PRN #30 tablet PRN Reason: Pain, Moderate (4-6)
--- NOTE | 2018-09-05 21:54 | Treadmill Report ---
THALLIUM STRESS TEST LEFT VENTRICLE: Left ventricular chamber size is within normal spread. Perfusion study demonstrates a small fixed basal inferior defect of mild intensity, no reversibility on the resting study. Gated analysis demonstrates normal left ventricular systolic function, ejection fraction 64%. CONCLUSION: This is a suboptimal study, with evidence of diaphragmatic attenuation artifact. No reversible ischemia is demonstrated, clinical correlation is recommended. JOB# [id number] CA/NTS
== END 2018-09-05 22:00 | disposition home or self-care (01) | DRG 947 ==
LOC: ED 09:50 → 4A 12:46
PROVIDERS: ADMIT Internal Medicine; ATTEND Internal Medicine
PROC: 5A1D70Z Performance of Urinary Filtration, Intermittent, Less than 6 Hours Per Day (ICD-10-PCS; principal; 2018-09-04)
DX: R41.82 Altered mental status, unspecified (principal); N18.6 End stage renal disease; I12.0 Hypertensive chronic kidney disease with stage 5 chronic kidney disease or end stage renal disease; I69.351 Hemiplegia and hemiparesis following cerebral infarction affecting right dominant side; R55 Syncope and collapse; D64.9 Anemia, unspecified; E11.22 Type 2 diabetes mellitus with diabetic chronic kidney disease; Z82.49 Family history of ischemic heart disease and other diseases of the circulatory system
CPT/HCPCS: 36415; 70450; 71045; 78452; 80048; 80053; 80061; 80074; 80076; 82140; 83036; 84484; 85014; 85018; 85025; 85049; 85520; 85610; 85730; 87040; 93005; 93010; 93017; 93306; 93880; 96374; 99291; G0378; A9270-GY; A9502; J0885; J1644; J2785; J7030